=== PATIENT | female | born 1975 | race Caucasian/White ===

== ENCOUNTER → 2017-02-15 | Outpatient (CLI) | payer BC ==
[2017-02-15 09:20] LABS: CHLORIDE,CL 103 mmol/L (98-110); SODIUM,NA 137 mmol/L (136-146)
== END ==
LOC: MW.CHFP 08:30
PROVIDERS: ATTEND Family Medicine
DX: Z00.00 Encounter for general adult medical examination without abnormal findings (principal)
CPT/HCPCS: 36415; 80053; 80061; 85027

== ENCOUNTER 2020-03-29 13:35 | Emergency (ER) | payer BC ==
--- NOTE | 2020-03-29 14:00 | EDM.PDOC ---
ED HPI GENERAL MEDICAL PROBLEM - General Chief Complaint: Bite:Animal, Insect Stated Complaint: DOG BITE Time Seen by Provider: 03/29/20 13:55 Source of Information: Reports: Patient History Limitations: Reports: No Limitations - History of Present Illness INITIAL COMMENTS - FREE TEXT/NARRATIVE: HISTORY AND PHYSICAL: History of present illness: Patient is a 45-year-old female presents to the ED with concern of dog bite. Patient states that she was bit by her dog yesterday while playing. She states that her dog is up-to-date on all vaccinations including rabies. She is not up- to-date on her tetanus. She states she came to the ED today because she was concerned about developing an infection. She states that she did wash the wounds out after it occurred. She denies any fevers or chills and has not noticed any redness or purulent drainage from the wounds. Review of systems: As per history of present illness and below otherwise all systems reviewed and negative. Past medical history: As per history of present illness and as reviewed below otherwise noncontributory. Surgical history: As per history of present illness and as reviewed below otherwise noncontributory. Social history: No reported history of drug or alcohol abuse. Family history: As per history of present illness and as reviewed below otherwise noncontributory. Physical exam: General: Patient sitting comfortably in no acute distress and nontoxic appearing HEENT: 2.5 cm laceration to the right side of the nose. There is a small laceration just above the right eyebrow and along the right nares and top of the right lip. There is a small puncture type laceration to the left side of the lip. There is no erythema, warmth or purulent drainage. Normocephalic, pupils reactive, negative for conjunctival pallor or scleral icterus, mucous membranes moist, throat clear, neck supple, nontender, trachea midline. No meningeal signs. Extremities: Atraumatic, negative for cords or calf pain. Neurovascular unremarkable. Neuro: Awake, alert, oriented. Cranial nerves II through XII unremarkable. Cerebellum unremarkable. Motor and sensory unremarkable throughout. Exam nonfocal. Notes: Diagnostics: None Therapeutics: tdap Prescriptions: Augmentin Impression: Dog bite Plan: Wash with mild soapy water Take antibiotic as instructed Follow-up with primary care provider Return to ED as needed as discussed Definitive disposition and diagnosis as appropriate pending reevaluation and review of above. - Related Data Allergies Allergy/AdvReac Type Severity Reaction Status Date / Time No Known Allergies Allergy Verified 03/29/20 14:04 Home Meds: Home Meds Amoxicillin/Potassium Clav [Augmentin 875-125 Tablet] 1 each PO BID 7 Days #14 tablet 03/29/20 [Rx] ED ROS GENERAL - Review of Systems Review Of Systems: Comprehensive ROS is negative, except as noted in HPI. ED EXAM, ANIMAL BITE - Physical Exam Exam: See Below (see Dictation) Course - Vital Signs Last Recorded V/S: Last Vital Signs Temp 97.0 F 03/29/20 13:59 Pulse 90 03/29/20 13:59 Resp 16 03/29/20 13:59 BP 170/88 H 03/29/20 13:59 Pulse Ox 97 03/29/20 13:59 - Orders/Labs/Meds Orders: Active Orders 24 hr Category Date Time Status Vaccines to be Administered [RC] PER UNIT ROUTINE Care 03/29/20 14:01 Ordered Meds: Medications Discontinued Medications Generic Name Dose Route Start Last Admin Trade Name Freq PRN Reason Stop Dose Admin Diphtheria/Tetanus/Acell Pertussis 0.5 ml 03/29/20 14:01 Adacel IM 03/29/20 14:02 .ONCE ONE Departure - Departure Time of Disposition: 14:05 Disposition: Home, Self-Care 01 Condition: Good Clinical Impression: Dog bite - Discharge Information Prescriptions: Amoxicillin/Potassium Clav [Augmentin 875-125 Tablet] 1 each PO BID 7 Days #14 tablet Referrals: PCP,None [Primary Care Provider] - Forms: ED Department Discharge Additional Instructions: The following information is given to patients seen in the emergency department who are being discharged to home. This information is to outline your options for follow-up care. We provide all patients seen in our emergency department with a follow-up referral. The need for follow-up, as well as the timing and circumstances, are variable depending upon the specifics of your emergency department visit. If you don't have a primary care physician on staff, we will provide you with a referral. We always advise you to contact your personal physician following an emergency department visit to inform them of the circumstance of the visit and for follow-up with them and/or the need for any referrals to a consulting specialist. The emergency department will also refer you to a specialist when appropriate. This referral assures that you have the opportunity for follow-up care with a specialist. All of these measure are taken in an effort to provide you with optimal care, which includes your follow-up. Under all circumstances we always encourage you to contact your private physician who remains a resource for coordinating your care. When calling for follow-up care, please make the office aware that this follow-up is from your recent emergency room visit. If for any reason you are refused follow-up, please contact the [facility] at and asked to speak to the emergency department charge nurse. [facility] [id number], [place] [address] [id number] Wash with mild soapy water Take antibiotic as instructed Follow-up with primary care provider Return to ED as needed as discussed Sepsis Event Note - Focused Exam Vital Signs: Vital Signs Temp Pulse Resp BP Pulse Ox 03/29/20 13:59 97.0 F 90 16 170/88 H 97 Date Exam was Performed: 03/29/20 Time Exam was Performed: 14:05 - My Orders Last 24 Hours: My Active Orders 03/29/20 14:01 Vaccines to be Administered [RC] PER UNIT ROUTINE - Assessment/Plan Last 24 Hours: My Active Orders 03/29/20 14:01 Vaccines to be Administered [RC] PER UNIT ROUTINE
[2020-03-29] MEDS ORDERED: Diphtheria,Pertussis(Acell),Tetanus Vaccine 0.5 ML Syringe IM ONE (14:01)
== END 2020-03-29 14:30 | disposition home or self-care (01) ==
LOC: MW.ED 13:35
DX: S01.25XA Open bite of nose, initial encounter (principal); S01.85XA Open bite of other part of head, initial encounter; S01.551A Open bite of lip, initial encounter; W54.0XXA Bitten by dog, initial encounter; Z23 Encounter for immunization
CPT/HCPCS: 90471; 90715; 99282; 99283-25

== ENCOUNTER 2023-09-09 02:18 | Emergency (ER) | payer BC ==
[2023-09-09] MEDS ORDERED: Haloperidol Lactate 5 MG/ML SDV IM ONE (03:03)
[2023-09-09 03:06] LABS: BASOPHILS ABSOLUTE AUTO 0.03 K/uL (0.00-0.20); BASOPHILS PERCENT AUTO 0.3 % (0.0-1.0); EOSINOPHILS ABSOLUTE AUTO 0.05 K/uL (0.00-0.45); EOSINOPHILS PERCENT AUTO 0.5 % (0.0-6.0); HEMATOCRIT 32.7 % (37.0-47.0); HEMOGLOBIN 10.7 g/dL (12.0-16.0); IMMATURE GRAN ABSOLUTE AUTO 0.13 K/uL (0.00-0.05); IMMATURE GRAN PERCENT AUTO 1.2 % (0.0-0.4); LYMPHOCYTES ABSOLUTE AUTO 1.41 K/uL (1.00-4.80); LYMPHOCYTES PERCENT AUTO 12.9 % (24.0-44.0); MEAN CORPUSCULAR HEMOGLOBIN 26.2 pg (28.0-32.0); MEAN CORPUSCULAR HGB CONC 32.7 g/dL (32.0-36.0); MEAN CORPUSCULAR VOLUME 80.1 fL (83.0-99.0); MEAN PLATELET VOLUME 9.2 fL (9.4-12.3); MONOCYTES ABSOLUTE AUTO 0.97 K/uL (0.00-0.80); MONOCYTES PERCENT AUTO 8.9 % (0.0-8.0); NEUTROPHILS ABSOLUTE AUTO 8.31 K/uL (1.80-7.70); NEUTROPHILS PERCENT AUTO 76.2 % (41.0-71.0); PLATELET COUNT,PLT 284 K/uL (150-400); RED BLOOD CELL COUNT 4.08 M/uL (4.10-5.30)
[2023-09-09] MEDS ORDERED: Propofol 200 MG/20 ML SDV IVPUSH ONE (03:12)
[2023-09-09] MEDS ORDERED: Ketamine 500 mg/10 ML MDV IV ONE (03:13)
[2023-09-09 03:17] LABS: INR 0.96 (0.86-1.11)
[2023-09-09 03:46] LABS: A/G RATIO 0.9 (0.9-1.6); ALBUMIN 3.7 g/dL (3.4-5.0); BILIRUBIN TOTAL 0.2 mg/dL (0.2-1.0); CARBON DIOXIDE,CO2 23.1 mmol/L (21.0-32.0); CREATININE 0.9 mg/dL (0.6-1.0); EST CRCL DRUG DOSING (CG) 66.01 mL/min; POTASSIUM,K 3.5 mmol/L (3.5-5.1); PROTEIN TOTAL,TP 7.6 g/dL (6.4-8.2)
== END 2023-09-09 06:56 | disposition home or self-care (01) ==
LOC: MW.ED 02:18
DX: S82.301A Unspecified fracture of lower end of right tibia, initial encounter for closed fracture (principal); W19.XXXA Unspecified fall, initial encounter; X50.1XXA Overexertion from prolonged static or awkward postures, initial encounter
CPT/HCPCS: 27825; 36415; 73590-26-RT; 73590-RT; 73600-26-RT; 73600-RT; 73610-26-RT; 73610-RT; 80053; 85025; 85610; 86850; 86900; 86901; 96372; 99283-25; 99284; J1630; J2704; J3490

== ENCOUNTER 2023-09-13 10:22 | Day surgery (SDC) | payer BC ==
[~2023-09-13 10:22] MED LIST: Lactated Ringers 1,000 ML IV SCH
[2023-09-13] MEDS ORDERED: Ondansetron 4 MG/2 ML SDV IVPUSH ONE (10:23)
[2023-09-13] MEDS ORDERED: Dexamethasone 4 MG/ML 5 ML MDV IVPUSH ONE (10:23)
[2023-09-13] MEDS ORDERED: Rocuronium Bromide 50 MG/5 ML Syringe IVPUSH ONE (10:23)
[2023-09-13] MEDS ORDERED: Sugammadex Sodium 200 MG/2 ML VIAL IV ONE (10:23)
[2023-09-13] MEDS ORDERED: Ketorolac 30 MG/ML SDV IVPUSH ONE (10:23)
[2023-09-13] MEDS ORDERED: fentaNYL 100 MCG/2 ML SDV ONE (10:38)
[2023-09-13] MEDS ORDERED: Propofol 200 MG/20 ML SDV ONE ×2 (10:38→12:56)
[2023-09-13] MEDS ORDERED: Albuterol 0.083% 2.5 MG/3 ML Neb Soln NEB PRN (10:49)
[2023-09-13] MEDS ORDERED: Ondansetron 4 MG/2 ML SDV IVPUSH PRN (10:49)
[2023-09-13] MEDS ORDERED: Naloxone 0.4 MG/ML SDV IVPUSH PRN (10:49)
[2023-09-13] MEDS ORDERED: fentaNYL 50 MCG/ML SDV IVPUSH PRN (10:49)
[2023-09-13] MEDS ORDERED: droPERidol 5 MG/2 ML SDV IVPUSH PRN (10:49)
[2023-09-13] MEDS ORDERED: HYDROmorphone 1 MG/ML Syringe IVPUSH PRN (10:49)
[2023-09-13] MEDS ORDERED: Morphine 2 MG/ML SYRINGE IVPUSH PRN (10:49)
[2023-09-13] MEDS ORDERED: Metoclopramide 10 MG/2 ML SDV IVPUSH PRN (10:49)
[2023-09-13] MEDS ORDERED: Ropivacaine 0.5% 5 MG/ML 30 ML SDV ONE (11:28)
[2023-09-13] MEDS ORDERED: HYDROmorphone 2 MG/ML Syringe ONE (12:56)
[2023-09-13] MEDS ORDERED: propofoL 50 ML ONE (12:56)
== END 2023-09-13 15:38 | disposition home or self-care (01) ==
LOC: MW.SDS 10:22
PROVIDERS: ATTEND Orthopaedic Surgery
DX: S82.841A Displaced bimalleolar fracture of right lower leg, initial encounter for closed fracture (principal); F41.9 Anxiety disorder, unspecified; F32.A Depression, unspecified; K21.9 Gastro-esophageal reflux disease without esophagitis; E03.9 Hypothyroidism, unspecified; G47.00 Insomnia, unspecified; E66.9 Obesity, unspecified; Z79.890 Hormone replacement therapy; Z79.899 Other long term (current) drug therapy; Z68.44 Body mass index [BMI] 60.0-69.9, adult
CPT/HCPCS: 27810; 76000; 81025; J0131; J1100; J1170; J1885; J2405; J2704; J3010; J3490; J7120; J2795

== ENCOUNTER 2023-09-20 09:33 | Day surgery (SDC) | payer BC ==
[~2023-09-20 09:33] MED LIST changes: +Albuterol 0.083% 2.5 MG/3 ML Neb Soln NEB PRN; +HYDROmorphone 1 MG/ML Syringe IVPUSH PRN; -Lactated Ringers 1,000 ML IV SCH; +Metoclopramide 10 MG/2 ML SDV IVPUSH PRN; +Morphine 2 MG/ML SYRINGE IVPUSH PRN; +Naloxone 0.4 MG/ML SDV IVPUSH PRN; +Ondansetron 4 MG/2 ML SDV IVPUSH PRN; +Scopolamine 1.5 MG Transdermal Patch TOP ONE; +droPERidol 5 MG/2 ML SDV IVPUSH PRN; +fentaNYL 50 MCG/ML SDV IVPUSH PRN
[2023-09-20] MEDS ORDERED: Lactated Ringers 1,000 ML IV SCH (10:15)
[2023-09-20] MEDS ORDERED: EPINEPHrine 1 MG/1 ML Amp ONE (11:47)
[2023-09-20] MEDS ORDERED: Ropivacaine 0.5% 5 MG/ML 30 ML SDV ONE (11:47)
[2023-09-20] MEDS ORDERED: Rocuronium Bromide 50 MG/5 ML Syringe ONE (11:52)
[2023-09-20] MEDS ORDERED: Sugammadex Sodium 200 MG/2 ML VIAL ONE (11:52)
[2023-09-20] MEDS ORDERED: fentaNYL 100 MCG/2 ML SDV ONE ×2 (11:52→12:44)
[2023-09-20] MEDS ORDERED: Ketorolac 30 MG/ML SDV ONE (11:52)
[2023-09-20] MEDS ORDERED: Dexamethasone 4 MG/ML 5 ML MDV ONE (11:52)
[2023-09-20] MEDS ORDERED: Lidocaine 2% 5 ML SDV ONE (11:52)
[2023-09-20] MEDS ORDERED: Ondansetron 4 MG/2 ML SDV ONE (11:52)
[2023-09-20] MEDS ORDERED: Propofol 200 MG/20 ML SDV ONE (11:52)
[2023-09-20] MEDS ORDERED: ceFAZolin 2 GM in Sodium Chloride 0.9% 50 ML IV ONE (12:00)
[2023-09-20] MEDS ORDERED: Metoprolol Tartrate 5 MG/5 ML SDV ONE (13:39)
[2023-09-20] MEDS ORDERED: Bupivacaine 0.5%/EPINEPHrine 1:200,000 30 ML SDV ONE (13:41)
== END 2023-09-20 15:30 | disposition home or self-care (01) ==
LOC: MW.SDS 09:33
PROVIDERS: ATTEND Orthopaedic Surgery
DX: S82.841A Displaced bimalleolar fracture of right lower leg, initial encounter for closed fracture (principal); F41.9 Anxiety disorder, unspecified; F32.A Depression, unspecified; E03.9 Hypothyroidism, unspecified; I10 Essential (primary) hypertension; K21.9 Gastro-esophageal reflux disease without esophagitis; E66.9 Obesity, unspecified; Z79.899 Other long term (current) drug therapy; Z79.890 Hormone replacement therapy
CPT/HCPCS: 27792; 27829; 64445; 64447; 76000; 81025; A9270; C1713; C1769; J0131; J0171; J1100; J1885; J2405; J2704; J2795; J3010; J3490; J7120